=== PATIENT | female | born 1985 | race Caucasian/White ===

== ENCOUNTER 2017-06-06 17:46 | Emergency (ER) | payer OTHER ==
--- NOTE | 2017-06-06 18:22 | EDPHY ---
HPI/HX/ROS/PE/MDM Narrative: CHIEF COMPLAINT: Left leg pain HPI: The patient is a 32 y/o female with a history of PCOS and a cholecystectomy complaining of left leg pain, onset yesterday. Denies recent trauma or injury. On 06/01/17, 5 days ago, she returned home from [facility] on a 12 hour flight. Yesterday she noticed that her left ankle was swollen and painful. Her left calf also felt more tight than normal. Today she went to an urgent care who advised that she present to an emergency department. Denies chest pain, shortness of breath, history of PE or DVT. No headache, cough, abdominal pain, urinary or bowel complaints, fever. REVIEW OF SYSTEMS: Aside from elements discussed in the HPI, a comprehensive 10-point review of systems was reviewed and is negative. PMH: Cholecystectomy, PCOS SOCIAL HISTORY: Lives in [place], single, employed PHYSICAL EXAM: General: Patient is alert, in no acute distress. ENT: Eyes are normal to inspection. ENT inspection normal. Neck: Normal inspection. Full range of motion. Respiratory: No respiratory distress. Breath sounds normal bilaterally. Cardiovascular: Regular rate and rhythm. Strong peripheral pulses. Normal cap refill. Abdomen: The abdomen is nontender to palpation. There are no peritoneal signs. There are normal bowel sounds. Back: Normal to inspection. No tenderness to palpation. Skin: Normal color. No rash. Warm and dry. Extremities: Normal appearance. Full range of motion. Neuro: Oriented x3. Normal motor function. Normal sensory function. ED Course: 1927: Spoke with radiologist, patient's leg US is negative for a DVT. 193: Reassessed patient and discussed imaging findings. Return precautions provided, patient is comfortable with this plan. MDM: This patient presents with LLE swelling and tightness after a long international plane flight. Thankfully, US is negative for DVT or other significant abnormality. Radiologist notes a small fluid collection not associated with vasculature but does not think this is significant, and there is no correlation I see to exam - no signs of FB or trauma. The patient denies chest pain or SOB to suggest PE. She is comfortable following-up with her PCP for further evaluation. - Data Points Imaging Results: Imaging Impressions Extremity Venous Study 06/06/17 18:33 Impression: 1. No sonographic evidence of left lower extremity deep vein thrombosis. 2. Small fluid collection along the anterior tibia in the area of the patient' s pain is of uncertain clinical significance. Correlate for recent trauma to this area. Dr. Castaneda discussed these findings by telephone with Andre Childress MD on at 1928 hours. Imaging: Discussed imaging studies w/ call worker person Radiologist General Time Seen by Provider: 06/06/17 18:19 Initial Vital Signs: Initial Vital Signs Temperature (C) 37.1 C 06/06/17 18:02 Heart Rate 64 06/06/17 18:02 Respiratory Rate 16 06/06/17 18:02 Blood Pressure 131/82 H 06/06/17 18:02 O2 Sat (%) 97 06/06/17 18:02 O2 Delivery Mode Room Air Allergies/Adverse Reactions: Sulfa (Sulfonamide Antibiotics) Allergy (Verified 06/06/17 18:02) Home Medications: Medication Instructions Recorded Bcp 06/06/17 Departure - Departure Disposition: Home, Routine, Self-Care Clinical Impression: Left leg pain Condition: Good Instructions: Leg Pain (ED) Additional Instructions: Follow-up with your primary doctor within 72 hours. Return to the Emergency Department for fever, chest pain, shortness of breath, increasing pain or other worsening of condition. Referrals: Yakov Wyman MD [Primary Care Provider] - As per Instructions Report Scribed for: Andre Childress Report Scribed by: Caridad Rubalcava Date of Report: 06/06/17 Time of Report: 18:21 Physician Review and Approval Statement: Portions of this note were transcribed by an ED scribe. I personally performed the history, physical exam, and medical decision making; and confirm the accuracy of the information in the transcribed note.
[2017-06-06 19:59] VITALS: BP 127/65; PULSE 71; RESP 18; TEMP 97.9; O2SAT 94
== END 2017-06-06 19:59 | disposition home or self-care (01) ==
DX: M79.605 Pain in left leg (principal)